=== PATIENT | male | born 1950 | race African-American/Black ===

== ENCOUNTER 2016-09-19 09:46 | Emergency (ER) | payer MEDICAID ==
[~2016-09-19] VITALS: Ht 172.7 cm; Wt 85.0 kg
[2016-09-19 13:33] VITALS: BP 131/76
== END 2016-09-19 15:01 | disposition home or self-care (01) ==
LOC: ER 10:04
DX: S20.219A Contusion of unspecified front wall of thorax, initial encounter (principal); F10.229 Alcohol dependence with intoxication, unspecified; I10 Essential (primary) hypertension; W19.XXXA Unspecified fall, initial encounter; Y93.89 Activity, other specified; Y92.89 Other specified places as the place of occurrence of the external cause; Y99.8 Other external cause status
CPT/HCPCS: 70450; 71020; 99284; Z7610

== ENCOUNTER 2016-12-20 13:03 | Emergency (ER) | payer MEDICAID ==
[~2016-12-20] VITALS: Ht 170.2 cm; Wt 85.0 kg
[2016-12-20] MEDS ORDERED: IBUPROFEN 400MG TABLET PO ONE (15:30)
[2016-12-20] MEDS ORDERED: SODIUM CHLORIDE 0.9% 1,000 ML IV ONE (15:45)
[2016-12-20 19:14] VITALS: BP 149/80
== END 2016-12-20 20:23 | disposition home or self-care (01) ==
LOC: ER 13:15
DX: S00.83XA Contusion of other part of head, initial encounter (principal); M54.2 Cervicalgia; R04.0 Epistaxis; I10 Essential (primary) hypertension; F17.200 Nicotine dependence, unspecified, uncomplicated; F10.20 Alcohol dependence, uncomplicated; W01.0XXA Fall on same level from slipping, tripping and stumbling without subsequent striking against object, initial encounter; Y93.89 Activity, other specified; Y92.009 Unspecified place in unspecified non-institutional (private) residence as the place of occurrence of the external cause; Y99.8 Other external cause status
CPT/HCPCS: 36415; 70450; 72125; 96360; 96361; 99285; G0482; J7030; Z7610